=== PATIENT | male | born 1970 | race Caucasian/White ===

== ENCOUNTER 2021-10-08 13:21 | Emergency (ER) | payer OTHER ==
[2021-10-08 13:47] VITALS: BP 123/83; PULSE 66; TEMP 98; BMI 29.6
[2021-10-08 15:12] LABS: ACTIVATED PTT 28.7 SECONDS (25.2-36.5)
[2021-10-08 15:13] LABS: ALBUMIN 4.2 g/dl (3.4-5.0); BILIRUBIN,TOTAL 0.6 mg/dl (0.2-1); CALCIUM 9.2 mg/dl (8.5-10); TOT PROT 6.7 g/dl (6.4-8.2)
[2021-10-08 15:16] LABS: INR 1.05 (0.83-1.09); PROTHROMBIN TIME (PATIENT) 11.6 SEC (9.7-13.0)
[2021-10-08 16:50] LABS: BASO % 0.7 % (0-2.0); EOS % 0.5 % (0-4.5); HEMOGLOBIN 15.6 GM/dL (11.7-16.9); LYMPH % 12.1 % (8-40); MCH 31.3 pg (25.7-33.7); MCHC 33.9 g/dl (32.0-35.9); MEAN CELL VOLUME 92.3 fl (80-96); MEAN PLT VOLUME 8.5 fl (7.5-11.1); NEUT % 81.7 % (42.8-82.8); PLATELET COUNT 143 10^3/uL (134-434); RBC 4.98 M/mm3 (4.00-5.60); RDW 13.9 % (11.9-15.9); WHITE BLOOD COUNT 9.5 K/mm3 (4.0-10.0)
== END 2021-10-08 17:29 | disposition home or self-care (01) ==
LOC: FER 13:21
DX: K92.1 Melena (principal)
CPT/HCPCS: 36415; 74174-TC; 80053; 85025; 85610; 85730; 86850; 86900; 86901; 99284-25; Q9967

== ENCOUNTER 2022-01-01 17:40 | Observation (INO) | payer OTHER ==
[2022-01-01] MEDS ORDERED: LIDOCAINE 5% TOPICAL PATCH TP ONE (18:26)
[2022-01-01] MEDS ORDERED: ACETAMINOPHEN 500 MG TABLET (FP) PO ONE (18:26)
[2022-01-01] MEDS ORDERED: ACETAMINOPHEN 325 MG TABLET (FP) ONE (18:49)
[2022-01-01] MEDS ORDERED: LIDOCAINE 5% TOPICAL PATCH ONE (18:49)
[2022-01-01 19:04] LABS: ALBUMIN 4.1 g/dl (3.4-5.0); BILIRUBIN,TOTAL 0.7 mg/dl (0.2-1); CALCIUM 8.9 mg/dl (8.5-10); CREATININE 0.8 mg/dl (0.55-1.3); MAGNESIUM 1.9 mg/dL (1.8-2.4); TOT PROT 6.9 g/dl (6.4-8.2)
[2022-01-01 20:07] LABS: EOS % 2.4 % (0-4.5); HEMATOCRIT 45.2 % (35.4-49); HEMOGLOBIN 15.3 GM/dL (11.7-16.9); LYMPH % 24.5 % (8-40); MCH 31.1 pg (25.7-33.7); MCHC 33.7 g/dl (32.0-35.9); MEAN PLT VOLUME 8.2 fl (7.5-11.1); MONO % 7.6 % (3.8-10.2); NEUT % 64.5 % (42.8-82.8); PLATELET COUNT 142 10^3/uL (134-434); RBC 4.91 M/mm3 (4.00-5.60); RDW 14.1 % (11.9-15.9)
[2022-01-01] MEDS ORDERED: LIDOCAINE PATCH REMOVAL MC SCH (22:00)
[2022-01-01 22:12] VITALS: BMI 31.7
[2022-01-02] MEDS ORDERED: ACETAMINOPHEN 325 MG TABLET (FP) PO PRN (04:36)
[2022-01-02 06:39] VITALS: TEMP 98.4
[2022-01-02 08:08] LABS: CALCIUM 9.2 mg/dl (8.5-10); CREATININE 0.8 mg/dl (0.55-1.3)
[2022-01-02 08:23] VITALS: BP 141/85; PULSE 57
[2022-01-02 09:30] LABS: BASO % 1.3 % (0-2.0); EOS % 3.7 % (0-4.5); HEMATOCRIT 43.9 % (35.4-49); HEMOGLOBIN 15.2 GM/dL (11.7-16.9); LYMPH % 29.8 % (8-40); MCH 31.6 pg (25.7-33.7); MCHC 34.6 g/dl (32.0-35.9); MEAN CELL VOLUME 91.4 fl (80-96); MEAN PLT VOLUME 8.4 fl (7.5-11.1); MONO % 7.9 % (3.8-10.2); NEUT % 57.3 % (42.8-82.8); PLATELET COUNT 135 10^3/uL (134-434); RDW 14.1 % (11.9-15.9); WHITE BLOOD COUNT 4.5 K/mm3 (4.0-10.0)
== END 2022-01-02 11:00 | disposition left against medical advice (07) ==
LOC: FER 17:40 → FM/S 18:46 → INTOOBSV 18:46
PROVIDERS: ADMIT Internal Medicine; ATTEND Nurse Practitioner Acute Care
DX: R55 Syncope and collapse (principal); M54.2 Cervicalgia; M54.41 Lumbago with sciatica, right side; G89.29 Other chronic pain; Z20.822 Contact with and (suspected) exposure to COVID-19; Z98.84 Bariatric surgery status; W10.8XXA Fall (on) (from) other stairs and steps, initial encounter; Y93.9 Activity, unspecified; Y92.008 Other place in unspecified non-institutional (private) residence as the place of occurrence of the external cause
CPT/HCPCS: 36415; 70450-TC; 71045-TC-FY; 72125-TC; 72131-TC; 80048; 80053; 81003; 83735; 84443; 84484; 85025; 87086; 93005; 93880-TC; 99285-25; C9803-CS; G0378; U0003; U0005